=== PATIENT | male | born 1960 | race Caucasian/White ===

== ENCOUNTER 2022-11-17 21:02 | Emergency (ER) | payer BC ==
[2022-11-17 21:18] VITALS: BP 150/94; PULSE 58; RESP 15; TEMP 98.8; BMI 22.8
[2022-11-17] MEDS ORDERED: CEPHALEXIN MONOHYDRATE 500 MG CAPSULE (UD) PO ONE (21:44)
[2022-11-17] MEDS ORDERED: CEPHALEXIN MONOHYDRATE 500 MG CAPSULE (UD) ONE (21:47)
== END 2022-11-17 21:50 | disposition home or self-care (01) ==
LOC: FER 21:02
DX: M25.522 Pain in left elbow (principal); R22.32 Localized swelling, mass and lump, left upper limb; M70.22 Olecranon bursitis, left elbow
CPT/HCPCS: 99283-25